=== PATIENT | female | born 2000 | race African-American/Black ===

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

== ENCOUNTER 2018-03-18 13:04 | Emergency (ER) | payer OTHER, SELFPAY ==
[2018-03-18 13:27] LABS: Bilirubin Negative (Negative); Blood, Urine Negative (Negative); Clarity Hazy (Clear); Glucose, Urine (Dipstick) Negative (Negative); Leukocyte Small (Negative); Nitrite Negative (Negative); Protein, Urine (Dipstick) Negative (Neg-Trace); Urobilinogen 0.2 mg/dL (0.2-1.0)
[2018-03-18 13:33] LABS: Bacteria/HPF 2+ HPF (None Seen); RBC/HPF None Seen HPF (0-3)
== END 2018-03-18 14:00 | disposition home or self-care (01) ==
LOC: SCSER 13:04
DX: N89.8 Other specified noninflammatory disorders of vagina (principal)
CPT/HCPCS: 81003; 81015; 87086; 99281

== ENCOUNTER 2018-04-15 12:09 | Emergency (ER) | payer SELFPAY | END 2018-04-15 13:26 | disposition home or self-care (01) | LOC: ERS 12:09 | DX: S29.012A Strain of muscle and tendon of back wall of thorax, initial encounter (principal); X50.9XXA Other and unspecified overexertion or strenuous movements or postures, initial encounter | CPT/HCPCS: 99283 ==

== ENCOUNTER 2018-12-01 09:02 | Emergency (ER) | payer SELFPAY ==
--- NOTE | 2018-12-01 10:34 | RAD ---
EXAM: 4 views of the right knee HISTORY: Knee pain COMPARISON: None FINDINGS: No knee effusion is seen. There is no evidence of acute fracture or dislocation. No signifi cant degenerative changes are seen. No soft tissue swelling is present. IMPRESSION: No evidence of acute osseous abnormality.
[2018-12-01] MEDS ORDERED: Ibuprofen 200 MG TAB ONE (10:39)
== END 2018-12-01 10:53 | disposition home or self-care (01) ==
LOC: ERS 09:02
DX: M25.561 Pain in right knee (principal); W23.0XXA Caught, crushed, jammed, or pinched between moving objects, initial encounter

== ENCOUNTER 2019-01-05 09:18 | Emergency (ER) | payer SELFPAY | END 2019-01-05 09:34 | disposition home or self-care (01) | LOC: ERS 09:18 | DX: J20.8 Acute bronchitis due to other specified organisms (principal) | CPT/HCPCS: 99283 ==

== ENCOUNTER 2019-06-21 15:46 | Emergency (ER) | payer SELFPAY | END 2019-06-21 16:03 | disposition home or self-care (01) | LOC: ERS 15:46 | DX: S39.012A Strain of muscle, fascia and tendon of lower back, initial encounter (principal); X58.XXXA Exposure to other specified factors, initial encounter | CPT/HCPCS: 99283 ==

== ENCOUNTER 2021-03-21 16:14 | Emergency (ER) | payer SELFPAY | END 2021-03-21 16:48 | disposition home or self-care (01) | LOC: ERS 16:14 | DX: R05.9 Cough, unspecified (principal); R68.83 Chills (without fever); M79.10 Myalgia, unspecified site | CPT/HCPCS: 99283 ==

== ENCOUNTER 2021-07-23 12:41 | Emergency (ER) | payer BC, SELFPAY ==
[2021-07-23] MEDS ORDERED: Acetaminophen 500 MG TAB ONE (13:03)
[2021-07-23 13:35] LABS: #Lymphocytes 1.3 thou/uL (1.20-3.40); #Monocytes 1.1 thou/uL (0.11-0.59); %Basophils 0.4 % (0.0-1.0); %Eosinophils 0.2 % (0.0-10.0); %Lymphocytes 15.2 % (21.0-51.0); %Monocytes 12.6 % (0.0-10.0); %Neutrophils 71.6 % (42.0-75.0); Hemoglobin 13.8 g/dL (12.0-16.0); Mean Corpuscular HGB CONC 32.9 g/dL (32.0-36.0); Mean Corpuscular Hemoglobin 32.5 pg (27.0-31.0); Mean Corpuscular Volume 98.6 fL (78.0-98.0); Mean Platelet Volume 8.9 fL (7.4-10.4); Platelet Count 209 thou/uL (130-400); RBC Distribution Width 11.5 % (11.5-14.5); Red Blood Cell (RBC) Count 4.26 mill/uL (4.20-5.40); White Blood Cell (WBC) Count 8.4 thou/uL (4.8-10.8)
[2021-07-23 13:45] LABS: BHCG - Serum Negative (NEGATIVE); Pregs Control Background? CLEAR/WHITE (CLR/WHITE); Pregs Control Bar Appear? YES (CONTROL BAR)
[2021-07-23 14:18] LABS: SARS-CoV-2 NAA Rapid Test DETECTED (NotDetected)
[2021-07-23 14:44] LABS: ALT (SGPT) 25 U/L (8-55); AST (SGOT) 22 U/L (5-34); Albumin 3.8 g/dL (3.5-5.0); Alkaline Phosphatase 69 U/L (40-110); Anion Gap 10 mmol/L (10-20); BUN (Urea Nitrogen) 6 mg/dL (7.0-18.7); Bilirubin, Total 0.3 mg/dL (0.2-1.2); Calc. Creatinine Clearance 0 mL/min (70-130); Calcium 8.7 mg/dL (7.8-10.44); Carbon Dioxide 22 mmol/L (22-29); Chloride 110 mmol/L (98-107); Globulin 3.2 g/dL (2.4-3.5); Glucose 92 mg/dL (70-105); Potassium 3.2 mmol/L (3.5-5.1); Sodium 139 mmol/L (136-145)
[2021-07-23] MEDS ORDERED: Potassium Chloride 20 MEQ TAB ONE (15:05)
== END 2021-07-23 15:12 | disposition home or self-care (01) ==
LOC: ERS 12:41
DX: U07.1 COVID-19 (principal)
CPT/HCPCS: 36415; 71045; 80053; 84703; 85025; 93005; 94760

== ENCOUNTER 2023-08-20 15:41 | Emergency (ER) | payer SELFPAY ==
[2023-08-20] MEDS ORDERED: Ondansetron PF 4 MG/2 ML Vial ONE ×2 (17:37→19:14)
[2023-08-20] MEDS ORDERED: Pantoprazole DR 40 MG TAB ONE (17:38)
[2023-08-20] MEDS ORDERED: Lidocaine 2% Viscous 10 mL, Alum & Magn 30 mL SSW SCH (18:00)
[2023-08-20 18:22] LABS: #Basophils Less than 0.03 10x3/uL (0.0-0.2); %Basophils 0.1 % (0.0-1.0); %Eosinophils 0.5 % (0.0-10.0); %Lymphocytes 30.6 % (21.0-51.0); %Monocytes 7.5 % (0.0-10.0); %Neutrophils 61.1 % (42.0-75.0); Hematocrit 42.4 % (36.0-47.0); Hemoglobin 14.7 g/dL (12.0-16.0); Mean Corpuscular HGB CONC 34.7 g/dL (32.0-36.0); Mean Corpuscular Volume 95.1 fL (78.0-98.0); Mean Platelet Volume 10.5 fL (7.4-10.4); Platelet Count 298 10x3/uL (130-400); RBC Distribution Width 12.8 % (11.5-14.5); Red Blood Cell (RBC) Count 4.46 mill/uL (4.20-5.40)
[2023-08-20 18:28] LABS: BHCG - Serum Negative (NEGATIVE); Pregs Control Background? CLEAR/WHITE (CLR/WHITE); Pregs Control Bar Appear? YES (CONTROL BAR)
[2023-08-20 18:38] LABS: ALT (SGPT) 21 U/L (8-55); AST (SGOT) 22 U/L (5-34); Albumin 4.5 g/dL (3.5-5.0); Alkaline Phosphatase 69 U/L (40-110); Anion Gap 15 mmol/L (10-20); BUN (Urea Nitrogen) 7 mg/dL (7.0-18.7); Bilirubin, Total 0.5 mg/dL (0.2-1.2); Calc. Creatinine Clearance 0 mL/min (70-130); Calcium 10.3 mg/dL (7.8-10.44); Carbon Dioxide 22 mmol/L (22-29); Chloride 106 mmol/L (98-107); Estimated GFR 109; Globulin 4.6 g/dL (2.4-3.5); Glucose 84 mg/dL (70-105); Lipase 11 U/L (8-78); Magnesium 1.9 mg/dL (1.6-2.6); Potassium 3.5 mmol/L (3.5-5.1); Protein, Total 9.1 g/dL (6.0-8.3); Sodium 139 mmol/L (136-145)
[2023-08-20 18:45] LABS: Bacteria/HPF None Seen HPF (None Seen); Bilirubin Negative (Negative); Blood, Urine 3+ (Negative); CAUTI Indications for Culture Pelvic or flank pain; Clarity Turbid (Clear); Glucose, Urine (Dipstick) Normal (Negative); Ketone, Urine Greater than 150 mg/dL (Negative); Leukocyte 500 Leu/uL (Negative); Mucous/LPF Rare LPF (<2+); Nitrite Negative (Negative); Protein, Urine (Dipstick) 50 mg/dL (Neg-Trace); RBC/HPF Greater than 50 HPF (0-3); Specific Gravity, Urine 1.034 (1.002-1.036); Urobilinogen 3 mg/dL (Less than 2); WBC/HPF Greater than 50 HPF (0-3)
[2023-08-20 18:47] LABS: Urine Culture Reflex Yes Yes
[2023-08-20] MEDS ORDERED: Promethazine HCl 25 MG in Sodium Chloride 0.9% 50 ML IVPB SCH (19:45)
[2023-08-20] MEDS ORDERED: cefTRIAXone (ROCEPHIN) 1 GM VIAL ONE (20:50)
[2023-08-20] MEDS ORDERED: Sodium Chloride 0.9% 100 ML ONE (20:50)
== END 2023-08-20 21:09 | disposition home or self-care (01) ==
LOC: ERS 15:41
DX: N39.0 Urinary tract infection, site not specified (principal); R11.2 Nausea with vomiting, unspecified
CPT/HCPCS: 80053; 81001; 83690; 83735; 84703; 85025; 87086; 96374; 96375; 96376; J0696; J2405; J2550; J3490

== ENCOUNTER 2023-08-21 15:31 | Emergency (ER) | payer SELFPAY | END 2023-08-21 16:15 | disposition home or self-care (01) | LOC: ERS 15:31 | DX: R11.2 Nausea with vomiting, unspecified (principal) | CPT/HCPCS: 99283 ==

== ENCOUNTER 2023-08-23 01:47 | Emergency (ER) | payer SELFPAY ==
[2023-08-23] MEDS ORDERED: Ondansetron PF 4 MG/2 ML Vial ONE (01:58)
[2023-08-23 02:40] LABS: #Basophils Less than 0.03 10x3/uL (0.0-0.2); #Eosinphils Less than 0.03 10x3/uL (0.0-0.7); %Basophils 0.2 % (0.0-1.0); %Eosinophils 0.2 % (0.0-10.0); %Monocytes 8.1 % (0.0-10.0); %Neutrophils 68.2 % (42.0-75.0); Hematocrit 37.1 % (36.0-47.0); Hemoglobin 12.8 g/dL (12.0-16.0); Mean Corpuscular HGB CONC 34.5 g/dL (32.0-36.0); Mean Corpuscular Hemoglobin 32.8 pg (27.0-31.0); Mean Corpuscular Volume 95.1 fL (78.0-98.0); Mean Platelet Volume 10.5 fL (7.4-10.4); Platelet Count 286 10x3/uL (130-400)
[2023-08-23 02:49] LABS: BHCG - Serum Negative (NEGATIVE); Pregs Control Background? CLEAR/WHITE (CLR/WHITE); Pregs Control Bar Appear? YES (CONTROL BAR)
[2023-08-23 03:00] LABS: ALT (SGPT) 17 U/L (8-55); AST (SGOT) 21 U/L (5-34); Albumin 4.1 g/dL (3.5-5.0); Alkaline Phosphatase 60 U/L (40-110); Anion Gap 17 mmol/L (10-20); BUN (Urea Nitrogen) 12 mg/dL (7.0-18.7); Bilirubin, Total 0.5 mg/dL (0.2-1.2); CK (CPK) 120 U/L (29-168); Calc. Creatinine Clearance 0 mL/min (70-130); Calcium 9.9 mg/dL (7.8-10.44); Carbon Dioxide 22 mmol/L (22-29); Chloride 104 mmol/L (98-107); Estimated GFR 97; Globulin 3.9 g/dL (2.4-3.5); Glucose 105 mg/dL (70-105); Lipase 11 U/L (8-78); Potassium 3.5 mmol/L (3.5-5.1); Sodium 139 mmol/L (136-145)
[2023-08-23 03:15] LABS: Bacteria/HPF None Seen HPF (None Seen); Bilirubin Negative (Negative); Blood, Urine 3+ (Negative); CAUTI Indications for Culture Pelvic or flank pain; Clarity Turbid (Clear); Glucose, Urine (Dipstick) Normal (Negative); Ketone, Urine 100 mg/dL (Negative); Leukocyte 250 Leu/uL (Negative); Nitrite Negative (Negative); Protein, Urine (Dipstick) 30 mg/dL (Neg-Trace); RBC/HPF Greater than 50 HPF (0-3); Specific Gravity, Urine 1.033 (1.002-1.036); Urobilinogen Normal mg/dL (Less than 2); WBC/HPF Greater than 50 HPF (0-3)
[2023-08-23 03:19] LABS: Urine Culture Reflex Yes Yes
[2023-08-23] MEDS ORDERED: Ketorolac Tromethamine 30 MG (1 mL) VIAL ONE (03:24)
[2023-08-23] MEDS ORDERED: Promethazine 25 MG TAB ONE (03:24)
[2023-08-25 11:10] LABS: Chlamydia by PCR, Vaginal Swab Not Detected (NotDetected); GC by PCR, Vaginal Swab Not Detected (NotDetected); Tric.vaginalis PCR,Vaginal Sw DETECTED (NotDetected)
== END 2023-08-23 04:10 | disposition home or self-care (01) ==
LOC: ERS 01:47
DX: R11.2 Nausea with vomiting, unspecified (principal)
CPT/HCPCS: 80053; 81001; 82550; 83605; 83690; 84703; 85025; 87086; 87491; 87591; 87661; 96374; 96375; J1885; J2405; Q0169